=== PATIENT | female | born 1980 | race Caucasian/White ===

== ENCOUNTER → 2018-02-20 | Outpatient (CLI) | payer BC | END | disposition home or self-care (01) | LOC: CVU 13:55 | PROVIDERS: ATTEND Internal Medicine Cardiovascular Disease | DX: I35.8 Other nonrheumatic aortic valve disorders (principal); I27.20 Pulmonary hypertension, unspecified; R60.0 Localized edema; E66.9 Obesity, unspecified | CPT/HCPCS: 93306 ==

== ENCOUNTER 2020-07-26 09:02 | Day surgery (SDC) | payer BC ==
[~2020-07-26] VITALS: Ht 149.9 cm; Wt 95.5 kg
[2020-07-26] MEDS ORDERED: DIPHENHYDRAMINE 50 MG/ML, 1ML ONE (09:34)
[2020-07-26] MEDS ORDERED: SODIUM CHLORIDE 0.9% 1,000 ML IV SCH (10:00)
[2020-07-26] MEDS ORDERED: DIPHENHYDRAMINE 50 MG/ML, 1ML IVPush ONE (10:00)
[2020-07-26 10:04] VITALS: BP 132/81
[2020-07-26] MEDS ORDERED: LIDOCAINE 1%, 20ML ONE (10:06)
[2020-07-26] MEDS ORDERED: CARV3.1212 PO (10:18)
[2020-07-26] MEDS ORDERED: LEVO88TA2 PO (10:18)
[2020-07-26] MEDS ORDERED: POTA20TA6 PO (10:18)
[2020-07-26] MEDS ORDERED: SPIR25TA5 PO (10:18)
[2020-07-26] MEDS ORDERED: TORS20TA2 PO (10:18)
[2020-07-26 10:20] LABS: BASOPHILS % (AUTO) 1 % (0-1); EOSINOPHILS % (AUTO) 2 % (1-7); LYMPHOCYTES % (AUTO) 18 % (22-44); MEAN CORPUSCULAR HEMOGLOBIN 35.5 pg (27.0-34.8); MEAN CORPUSCULAR HGB CONC 33.4 g/dL (32.4-35.8); MEAN PLATELET VOLUME 8.3 fL (7.4-10.4); MONOCYTES % (AUTO) 11 % (2-9); NEUTROPHILS % (AUTO) 68 % (42-75); PLATELET COUNT 246 x10^3/uL (130-400); RED BLOOD COUNT 4.04 x10^6/uL (3.82-5.3); RED CELL DISTRIBUTION WIDTH 14.6 % (9.6-15.2)
[2020-07-26 10:21] LABS: MD NO
[2020-07-26 10:32] LABS: ANION GAP 3 mmol/L (5-15); CALCIUM 9.5 mg/dL (8.5-10.1); CHLORIDE 105 mmol/L (98-107); CREATININE 2.03 mg/dL (0.55-1.02)
[2020-07-26] MEDS ORDERED: ADENOSINE IV ONE (11:30)
[2020-07-26] MEDS ORDERED: SODIUM CHLORIDE 0.9% IV ONE (11:30)
== END 2020-07-26 13:05 | disposition home or self-care (01) ==
LOC: CACL 09:02
PROVIDERS: ATTEND Internal Medicine Cardiovascular Disease
DX: I27.9 Pulmonary heart disease, unspecified (principal); Z79.899 Other long term (current) drug therapy
CPT/HCPCS: 36415; 80048; 82330; 82803; 82947; 84132; 84295; 84703; 85014; 85025; 93451; C1769; C1894; J0153; J1200